=== PATIENT | male | born 1965 | race African-American/Black ===

== ENCOUNTER 2017-02-27 21:03 | Emergency (ER) | payer OTHER ==
[~2017-02-27 21:03] MED LIST: HYDR-3129 PO; PERI8.6T PO
[2017-02-27 21:05] VITALS: BP 139/85; PULSE 86; RESP 15; TEMP 98.1; O2SAT 98
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
== END 2017-02-28 01:32 | disposition home or self-care (01) ==
LOC: NEPD 21:03
DX: S16.1XXA Strain of muscle, fascia and tendon at neck level, initial encounter (principal); S39.012A Strain of muscle, fascia and tendon of lower back, initial encounter; V89.2XXA Person injured in unspecified motor-vehicle accident, traffic, initial encounter
CPT/HCPCS: 72040; 72100; 99283